=== PATIENT | male | born 1990 | race Caucasian/White ===

== ENCOUNTER 2024-01-02 20:04 | Emergency (ER) | payer OTHER ==
[~2024-01-02] VITALS: Ht 182.8 cm; Wt 92.5 kg
[2024-01-02] MEDS ORDERED: VIBRAMYCIN100 MG PO (20:48)
[2024-01-02] MEDS ORDERED: Doxycycline Hyclate 100 MG CAP PO ONE (20:50)
== END 2024-01-02 20:59 | disposition home or self-care (01) ==
LOC: ED 20:04
DX: S30.860A Insect bite (nonvenomous) of lower back and pelvis, initial encounter (principal); M79.10 Myalgia, unspecified site; R50.9 Fever, unspecified; W57.XXXA Bitten or stung by nonvenomous insect and other nonvenomous arthropods, initial encounter; Y93.89 Activity, other specified; Y92.009 Unspecified place in unspecified non-institutional (private) residence as the place of occurrence of the external cause; Y99.8 Other external cause status